=== PATIENT | male | born 1960 | race Caucasian/White ===

== ENCOUNTER 2024-01-30 01:27 | Observation (INO) | payer BC ==
[2024-01-30] MEDS: ASPIRIN 81 MG PO STA (02:24)
[2024-01-30] MEDS: SODIUM CHLORIDE 0.9% 1,000 ML IV STA (02:24)
[2024-01-30] MEDS: ACETAMINOPHEN TAB 500 MG TAB PO STA (02:25)
[2024-01-30] MEDS: NITROGLYCERIN SL TABS 0.4 MG TAB SUBLINGUAL STA (02:26)
[2024-01-30 02:28] LABS: Basophils # (A) 0.1 k/uL (0-0.2); Basophils % (A) 0 %; Eosinophils # (A) 0.3 k/uL (0-0.7); Eosinophils % (A) 2 %; HCT 40.8 % (39.0-53.0); HGB 13.9 gm/dL (13.0-17.5); Lymphocytes # (A) 2.7 k/uL (1.0-4.8); Lymphocytes % (A) 17 %; MCH 32.5 pg (25.0-35.0); MCV 95.6 fL (80.0-100.0); Mean Platelet Volume 7.4; Monocytes # (A) 0.9 k/uL (0-1.0); Monocytes % (A) 5 %; Neutrophils # (A) 12.2 k/uL (1.3-7.7); Neutrophils % (A) 75 %; Platelet Count 312 k/uL (150-450); RBC 4.27 m/uL (4.30-5.90); RDW 13.2 % (11.5-15.5); WBC 16.3 k/uL (3.8-10.6)
--- NOTE | 2024-01-30 02:28 | ED ---
General Adult HPI - General Chief complaint: Headache Stated complaint: High BP Time Seen by Provider: 01/30/24 01:41 Source: patient Mode of arrival: ambulatory Limitations: no limitations - History of Present Illness Initial comments: Patient is a pleasant 63-year-old gentleman with a past medical history of prior hemorrhagic CVA, hypertension, current smoker presenting today for headache, chest pain and hypertension. Patient states that he has had intermittent headaches for the last 3 to 5 months. Headaches are on the left side and right side of his head described as sharp. He has no associated vision changes, numbness weakness or slurred speech. Does state he has had decreased sensation of dorsal aspect left hand for 2 weeks. He spent today with his family and upon arriving home began noticing a headache and chest pressure and checked his blood pressure which was 190/92. He googled his symptoms and the internet told him he should go to the ED. GEORGE is not the worst he has ever had, took 600 mg motrin today at 6 PM, with some improvement. He has had worse headaches over the last 3-5 months. Also describes midsternal chest pressure, though has some difficulty describing the pain further. Intermittently radiates to jaw, shoulders and back though is currently nonradiating. States he also feels short of breath though states that it is difficult to describe does not worsen with ambulation or lying flat.Feels like he has to take "short deep breaths". Is a current smoker and describes ongoign cough that is intermittently productive of sputum but no hemoptysis. That his doctor has him on lisinopril which he usually takes once in the morning and once in the evening as well as Vasotec and nifedipine. He states that he had "a water pill" added 2 weeks ago by his PCP though he unsure of the name. Patient denies history of cancer, recent surgeries or hospitalizations. Feels like his distal lower extremities are mildly swollen otherwise lateral lower extremity swelling. History of prior PE/DVT. No history of prior PA. Patient's father did at the age of 56 from a heart attack. - Related Data Allergies Allergy/AdvReac Type Severity Reaction Status Date / Time No Known Allergies Allergy Verified 01/30/24 01:31 Review of Systems ROS Statement: Those systems with pertinent positive or pertinent negative responses have been documented in the HPI. ROS Other: All systems not noted in ROS Statement are negative. Constitutional: Denies: fever Eyes: Denies: vision change Respiratory: Reports: cough, dyspnea. Denies: wheezes, hemoptysis, stridor Cardiovascular: Reports: chest pain. Denies: dyspnea on exertion, orthopnea, edema Gastrointestinal: Reports: diarrhea (intermittent loose stools ). Denies: abdominal pain, nausea, vomiting, constipation, melena, hematochezia Neurological: Reports: headache, numbness (left hand x 2 weeks). Denies: we akness Past Medical History Past Medical History: Chest Pain / Angina, CVA/TIA, Diabetes Mellitus, Hyperlipidemia, Hypertension Additional Past Medical History / Comment(s): bladder issues History of Any Multi-Drug Resistant Organisms: None Reported Past Surgical History: No Surgical Hx Reported Past Psychological History: Depression Smoking Status: Current every day smoker Past Alcohol Use History: None Reported Past Drug Use History: None Reported General Exam - General Exam Comments Initial Comments: PE: CONSTITUTIONAL: No apparent distress, well appearing SKIN: Warm, dry, no jaundice, hives or petechiae EYES: Pupils are equally round, extraocular movements intact without nystagmus, clear conjunctiva, non-icteric sclera, no papilledema HENT: Normocephalic, atraumatic, moist mucus membranes, oropharynx clear without exudates NECK: , Full range of motion, normal appearance PULMONARY: Clear to auscultation without wheezes, rhonchi, or rales, normal excursion, no accessory muscle use and no stridor CARDIOVASCULAR: Regular rate, rhythm, normal S1 and S2. No appreciated murmurs, rubs or gallops. Strong and dorsalis pedis radial pulses with intact distal perfusion. No lower extremity edema GASTROINTESTINAL: Soft, active bowel sounds throughout, non-tender, non- distended, no palpable masses, no rebound or guarding. No hepatosplenomegaly GENITOURINARY: MUSCULOSKELETAL: Extremities have no gross deformity, no edema, redness, or swelling. No calf swelling NEUROLOGIC:_a/o x 3, GCS 15, normal mentation and speech. Moves all extremities x 4 without motor or sensory deficit Cranial nerves: II (visual ivory without defects), III, IV and (extraocular movements are intact, pupils are equal with normal reaction to light), V (intact facial sensation and jaw opening), VII (no facial droop), IX and X (normal palate movement, midline uvula, normal voice), XI (symmetrical shoulder shrug and lateral head rotation against resistance), XII (midline tongue protrusion). Motor strength is 5/5 in all extremities. No abnormal movements. Normal muscle tone. Sensation to light touch is intact bilaterally. No cerebellar signs ([id number], fqgk-ci-dalk, and rapid alternating movements are normal) PSYCHIATRIC:_normal mood and affect, thought process is clear and linear Limitations: no limitations Course Vital Signs 01/30/24 01:31 Temperature 98.5 F Pulse Rate 73 Respiratory 16 Rate Blood Pressure 208/74 O2 Sat by Pulse 97 Oximetry EKG Findings - EKG Comments: EKG Findings:: Sinus bradycardia, rate 57 bpm, [place] interval 172 ms, QRS duration 125 ms, QT/QTc 444/439 ms, enlarged T waves V3, V4, no ST elevations or depressions, no arrhythmia Medical Decision Making - Medical Decision Making Was pt. sent in by a medical professional or institution (, PA, COMPOSITION WEATHERBOARD INSTALLER, urgent care, hospital, or [facility]...) When possible be specific @ -[No] Did you speak to anyone other than the patient for history (EMS, parent, family, police, friend...)? What history was obtained from this source @ -[No] Did you review nursing and triage notes (agree or disagree)? Why? @ -[I reviewed and agree with nursing and triage notes] Were old charts reviewed (outside hosp., previous admission, EMS record, old EKG, old radiological studies, urgent care reports/EKG's, [facility] records)? Report findings @ -[No old charts were reviewed] Differential Diagnosis (chest pain, altered mental status, abdominal pain women, abdominal pain men, vaginal bleeding, weakness, fever, dyspnea, syncope, headache, dizziness, GI bleed, back pain, seizure, CVA, palpatations, mental health, musculoskeletal)? @ -[not applicable] EKG interpreted by me (3pts min.). @ -[As above] X-rays interpreted by me (1pt min.). @ -[None done] CT interpreted by me (1pt min.). @ -[None done] U/S interpreted by me (1pt. min.). @ -[None done] What testing was considered but not performed or refused? (CT, X-rays, U/S, labs)? Why? @ -[None] What meds were considered but not given or refused? Why? @ -[None] Did you discuss the management of the patient with other professionals (professionals i.e. , PA, COMPOSITION WEATHERBOARD INSTALLER, lab, RT, psych nurse, foster care social worker, pattern drum maker, teacher, restoration officer, major case detective)? Give summary @ -[No] Was smoking cessation discussed for >3mins.? @ -[No] Was critical care preformed (if so, how long)? @ -[No] Were there social determinants of health that impacted care today? How? (Homelessness, low income, unemployed, alcoholism, drug addiction, transportation, low edu. Level, literacy, decrease access to med. care, care home, rehab)? @ -[No] Was there de-escalation of care discussed even if they declined (Discuss DNR or withdrawal of care, Hospice)? @ -[No] What co-morbidities impacted this encounter? (DM, HTN, Smoking, COPD, CAD, Cancer, CVA, ARF, Chemo, Hep., AIDS, mental health diagnosis, sleep apnea, mo rbid obesity)? @ -[None] Was patient admitted / discharged? Hospital course, mention meds given and route, prescriptions, significant lab abnormalities, going to OR and other pertinent info. @ -[hospital course] Patient is a pleasant 63-year-old gentleman presenting today for headache, chest pain and hypertension. Patient seen and assessed on arrival, resting comfortably no acute distress. Very pleasant gentleman, no focal neurologic deficits on exam, lungs are clear to auscultation bilaterally, no lower extremity edema. He is 2+ pulses in all 4 extremities. Blood pressure was 208 systolic however on repeat assessment without intervention was 180/82. Will try subbing on nitroglycerin for chest pressure, 320 mg aspirin, Tylenol for headache. CT brain will be obtained due to new headache without history of the same as this has been ongoing for 3 to 5 months and he is no focal neurologic deficits I have very low suspicion for acute intracranial hemorrhage and did not feel CTA or LP indicated at this point. I do anticipate admission for chest pain given elevated heart score no prior workup for this. Cardiac enzymes, D- dimer, chest x-ray basic labs and IV fluids ordered. HEART score- plan for admission. Patient agreeable with plan. Potassium 3.0, this could potentially cause of's's prolonged QT interval, ordered replacement potassium. Magnesium 1.9. Mild leukocytosis weapons, 16.3 Undiagnosed new problem with uncertain prognosis? @ -[No] Drug Therapy requiring intensive monitoring for toxicity (Heparin, Nitro, Insulin, Cardizem)? @ -[No] Were any procedures done? @ -[No] Diagnosis/symptom? @ -[default] Acute, or Chronic, or Acute on Chronic? @ -[default] Uncomplicated (without systemic symptoms) or Complicated (systemic symptoms)? @ -[default] Side effects of treatment? @ -[No] Exacerbation, Progression, or Severe Exacerbation? @ -[No] Poses a threat to life or bodily function? How? (Chest pain, USA, PA, pneumonia, PE, COPD, DKA, ARF, appy, cholecystitis, CVA, Diverticulitis, Homicidal, Suicidal, threat to staff... and all critical care pts) @ -[No] - Lab Data Result diagrams: 01/30/24 02:16 01/30/24 02:16 Lab Results 01/30/24 01/30/24 Range/Units 02:16 02:16 WBC 16.3 H (3.8-10.6) k/uL RBC 4.27 L (4.30-5.90) m/uL Hgb 13.9 (13.0-17.5) gm/dL Hct 40.8 (39.0-53.0) % MCV 95.6 (80.0-100.0) fL MCH 32.5 (25.0-35.0) pg MCHC 34.0 (31.0-37.0) g/dL RDW 13.2 (11.5-15.5) % Plt Count 312 (150-450) k/uL MPV 7.4 Neutrophils % 75 % Lymphocytes % 17 % Monocytes % 5 % Eosinophils % 2 % Basophils % 0 % Neutrophils # 12.2 H (1.3-7.7) k/uL Lymphocytes # 2.7 (1.0-4.8) k/uL Monocytes # 0.9 (0-1.0) k/uL Eosinophils # 0.3 (0-0.7) k/uL Basophils # 0.1 (0-0.2) k/uL Sodium 136 L (137-145) mmol/L Potassium 3.0 L (3.5-5.1) mmol/L Chloride 101 (98-107) mmol/L Carbon Dioxide 30 (22-30) mmol/L Anion Gap 5 mmol/L BUN 22 H (9-20) mg/dL Creatinine 0.91 (0.66-1.25) mg/dL Est GFR (CKD-EPI)AfAm >90 (>60 ml/min/1.73 sqM) Est GFR (CKD-EPI)NonAf >90 (>60 ml/min/1.73 sqM) Glucose 215 H (74-99) mg/dL Calcium 9.6 (8.4-10.2) mg/dL Magnesium 1.9 (1.6-2.3) mg/dL Total Bilirubin 0.3 (0.2-1.3) mg/dL AST 20 (17-59) U/L ALT 19 (4-49) U/L Alkaline Phosphatase 62 (38-126) U/L Total Protein 6.5 (6.3-8.2) g/dL Albumin 4.2 (3.5-5.0) g/dL Amylase 53 (30-110) U/L Lipase 154 (23-300) U/L Disposition Referrals: Max Ashton DO [Primary Care Provider] - 1-2 days
[2024-01-30 02:38] LABS: ALT 19 U/L (4-49); AST 20 U/L (17-59); African American GFR (CKD) >90 (>60 ml/min/1.73 sqM); Albumin 4.2 g/dL (3.5-5.0); Alkaline Phosphatase 62 U/L (38-126); Amylase 53 U/L (30-110); Anion Gap 5 mmol/L; Blood Urea Nitrogen 22 mg/dL (9-20); Calcium 9.6 mg/dL (8.4-10.2); Carbon Dioxide 30 mmol/L (22-30); Chloride 101 mmol/L (98-107); Glucose 215 mg/dL (74-99); Lipase 154 U/L (23-300); Magnesium 1.9 mg/dL (1.6-2.3); Non-African American GFR(CKD) >90 (>60 ml/min/1.73 sqM); Sodium 136 mmol/L (137-145); Total Bilirubin 0.3 mg/dL (0.2-1.3); Total Protein 6.5 g/dL (6.3-8.2)
[2024-01-30 02:40] LABS: INR 0.9 (<1.2); Partial Thromboplastin Time 23.6 sec (22.0-30.0); Prothrombin Time 10.1 sec (10.0-12.5)
[2024-01-30 02:46] LABS: NT-Pro-B-Type Natriuretic Pept 1390 pg/mL
--- NOTE | 2024-01-30 02:51 | XR ---
EXAMINATION TYPE: XR chest 2V DATE OF EXAM: 01/30/2024 CLINICAL HISTORY: Hypertension and chest pain TECHNIQUE: Frontal and lateral views of the chest are obtained. COMPARISON: None FINDINGS: Overlying EKG leads are seen. There is no focal air space opacity, pleural effusion, or pne umothorax seen. The cardiac silhouette size is within normal limits. The osseous structures are in tact. IMPRESSION: No acute cardiopulmonary process. [facility], , 01/30/2024 2:49 AM
--- NOTE | 2024-01-30 02:52 | CT ---
EXAMINATION TYPE: CT brain wo con DATE OF EXAM: 01/30/2024 HISTORY: Pt presents with hypertension for the past 4 months. PT has been doubling his lisinopril , h e states his PCP added a water pill. Today pt complains of a headache. CT DLP: 1168.7 mGycm. Automated Exposure Control for Dose Reduction was Utilized. TECHNIQUE: CT scan of the head is performed without contrast. COMPARISON: None. FINDINGS: There is no acute intracranial hemorrhage or midline shift identified. Ventricles and sul ci are within normal limits in size. Michele-white matter differentiation is maintained. The globes are intact and the visualized sinuses are clear. IMPRESSION: No acute intracranial hemorrhage or midline shift. [facility], , 01/30/2024 2:50 AM
[2024-01-30] MEDS: POTASSIUM BICARBONATE/CIT AC 20 MEQ TABLET.EFF PO ONE (03:12)
--- NOTE | 2024-01-30 04:20 | P.HPIM ---
History of Present Illness H&P Date: 01/30/24 Patient is a 63-year-old male with a PMH of type II DM, hypertension, hyperlipidemia, tobacco abuse, and prior hemorrhagic CVA who presents to the emergency room with complaints of intermittent chest discomfort and headaches. Patient reports that he has been experiencing both of these symptoms over the past 3 to 5 months. Reports that the chest discomfort is usually brought on with exertion and has somewhat been stable in the past few weeks. Does report that the headache seems to be associated with elevated blood pressure readings at home. Checked his BP earlier today as he was again having episode of both substernal chest discomfort and diffuse headache and noted that it was 190/92. Reports that chest discomfort is nonradiating, with some associated shortness of breath, without nausea, vomiting, diaphoresis, dizziness. The pain was improved with nitroglycerin in the emergency room. Reports being symptom-free at the time of interview. Denies experiencing weakness, speech impairment, or visual problems. Does report some paresthesias of the left hand over the past few weeks. CT brain in the emergency was unremarkable with chest x-ray also unremarkable. EKG revealed sinus bradycardia at 57 bpm with no additional ST/T wave changes noted as reviewed by me. Laboratory evaluation was remarkable for leukocytosis of 16.3, sodium 126, potassium 3.0, BUN 22, glucose 215, with troponin 0.030 and proBNP 1309. The patient's BP in the emergency room was 2 8/74 with pulse 73, temp 98.5 F, SpO2 97% on room air. ED documentation reviewed and case discussed with ED provider. Review of systems: Pertinent positives and negatives as discussed in HPI, a complete review of systems was performed and all other systems are negative. Physical examination: Vital signs reviewed General: non toxic, no distress, appears at stated age, normal weight Derm: no unusual rashes/lesions, warm Head: atraumatic, normocephalic, symmetric Eyes: EOMI, no lid lag, anicteric sclera, pupils equal round reactive to light ENT: Nose and ears atraumatic Neck: No cervical lymphadenopathy, trachea midline, supple Mouth: no lip lesion, mucus membranes moist Cardiovascular: S1S2 reg, no murmur, positive dorsalis pedis pulse bilateral, no edema Lungs: CTA bilateral, no rhonchi, no rales, no accessory muscle use Abdominal: soft, nontender to palpation, no guarding Ext: muscle strength 5 out of 5 in all 4 extremities grossly, no gross muscle atrophy, no contractures, Neuro: CN II-XI grossly intact, no gross focal neuro deficits Psych: Alert, oriented, appropriate affect Assessment: Chest pain, rule out ACS Hypertensive urgency Leukocytosis, likely secondary to acute stressor with no signs of active infection at this time Hypokalemia Chronic conditions: Type II DM, hypertension, hyperlipidemia, tobacco abuse Imaging: CT brain in the emergency was unremarkable with chest x-ray also unremarkable. EKG revealed sinus bradycardia at 57 bpm with no additional ST/T wave changes noted as reviewed by me. Data Review: Laboratory evaluation was remarkable for leukocytosis of 16.3, sodium 126, potassium 3.0, BUN 22, glucose 215, with troponin 0.030 and proBNP 1309. The patient's BP in the emergency room was 2 874 with pulse 73, temp 98.5 F, SpO2 97% on room air. Plan: Cardiology consulted Trend troponin Continue with aspirin and statin Cardiac monitoring Resume home antihypertensives Monitor CBC Replace potassium Insulin sliding scale blood glucose monitoring Resume remaining home medications once reconciled DVT prophylaxis: Lovenox The patient is admitted with an anticipated fewer than 2 midnight stay for evaluation of chest pain. Pain CODE STATUS: Full Code Discussed with: Patient Anticipated discharge place: Home Past Medical History Past Medical History: Chest Pain / Angina, CVA/TIA, Diabetes Mellitus, Hyperlipidemia, Hypertension Additional Past Medical History / Comment(s): bladder issues History of Any Multi-Drug Resistant Organisms: None Reported Past Surgical History: No Surgical Hx Reported Past Psychological History: Depression Smoking Status: Current every day smoker Past Alcohol Use History: None Reported Past Drug Use History: None Reported - Past Family History Mother Family Medical History: Hyperlipidemia Medications and Allergies Allergies Allergy/AdvReac Type Severity Reaction Status Date / Time No Known Allergies Allergy Verified 01/30/24 01:31 Physical Exam Vitals: Vital Signs Temp Pulse Resp BP Pulse Ox 01/30/24 01:31 98.5 F 73 16 208/74 97 Intake and Output 01/29/24 01/29/24 01/30/24 14:59 22:59 06:59 Other: Weight 82.1 kg Results CBC & Chem 7: 01/30/24 02:16 01/30/24 02:16 Labs: Abnormal Lab Results - Last 24 Hours (Table) 01/30/24 01/30/24 Range/Units 02:16 02:16 WBC 16.3 H (3.8-10.6) k/uL RBC 4.27 L (4.30-5.90) m/uL Neutrophils # 12.2 H (1.3-7.7) k/uL Sodium 136 L (137-145) mmol/L Potassium 3.0 L (3.5-5.1) mmol/L BUN 22 H (9-20) mg/dL Glucose 215 H (74-99) mg/dL
[2024-01-30] MEDS: POTASSIUM CHLORIDE ER 20 MEQ TAB.ER PO STA (04:26)
[2024-01-30] MEDS: ATORVASTATIN 80 MG TAB PO STA (04:26)
[2024-01-30] MEDS: ATORVASTATIN 80 MG TAB PO SCH (04:26)
[2024-01-30] MEDS ORDERED: traMADol 50 MG TAB PO PRN (04:35)
[2024-01-30] MEDS ORDERED: ACETAMINOPHEN TAB 325 MG TAB PO PRN (04:35)
[2024-01-30] MEDS ORDERED: NALOXONE 0.4 MG/ML 1 ML VIAL IV PRN (04:35)
[2024-01-30] MEDS ORDERED: ALPRAZolam 0.25 MG TAB PO PRN (04:35)
[2024-01-30 05:29] LABS: Glucose,Whole Blood 163 mg/dL (70-110)
[2024-01-30 06:15] LABS: HCT 37.1 % (39.0-53.0); HGB 12.7 gm/dL (13.0-17.5); MCH 33.1 pg (25.0-35.0); MCHC 34.2 g/dL (31.0-37.0); MCV 96.5 fL (80.0-100.0); Mean Platelet Volume 6.7; Platelet Count 279 k/uL (150-450); RBC 3.85 m/uL (4.30-5.90); RDW 12.8 % (11.5-15.5); WBC 14.1 k/uL (3.8-10.6)
[2024-01-30 07:26] LABS: Glucose,Whole Blood 137 mg/dL (70-110)
[2024-01-30] MEDS: INSULIN ASPART (NovoLOG) 100 UNIT/ML VIAL SQ SCH (07:30)
[2024-01-30 08:04] VITALS: TEMP 98.3
[2024-01-30] MEDS ORDERED: REGADENOSON 0.4 MG/5 ML SYRINGE IV PRN (08:38)
[2024-01-30] MEDS ORDERED: CAFFEINE CITRATE 60 MG/3 ML VIAL IV PRN (08:38)
[2024-01-30] MEDS ORDERED: AMINOPHYLLINE 500 MG/20 ML VIAL IV PRN (08:38)
[2024-01-30] MEDS: ASPIRIN 81 MG PO SCH (08:43)
[2024-01-30] MEDS: ENOXAPARIN 40 MG/0.4 ML SYRINGE SQ SCH (08:46)
[2024-01-30 09:19] LABS: ALT 17 U/L (4-49); AST 18 U/L (17-59); African American GFR (CKD) >90 (>60 ml/min/1.73 sqM); Albumin 3.7 g/dL (3.5-5.0); Albumin/Globulin Ratio 1.7; Alkaline Phosphatase 50 U/L (38-126); Anion Gap 3 mmol/L; Blood Urea Nitrogen 16 mg/dL (9-20); Calcium 9.2 mg/dL (8.4-10.2); Carbon Dioxide 33 mmol/L (22-30); Chloride 101 mmol/L (98-107); Globulin 2.2 g/dL; Glucose 173 mg/dL (74-99); Magnesium 1.8 mg/dL (1.6-2.3); Non-African American GFR(CKD) >90 (>60 ml/min/1.73 sqM); Potassium 3.3 mmol/L (3.5-5.1); Sodium 137 mmol/L (137-145); Total Bilirubin 0.7 mg/dL (0.2-1.3); Total Protein 5.9 g/dL (6.3-8.2)
--- NOTE | 2024-01-30 10:37 | P.CRDCN ---
History of Present Illness Consult date: 01/30/24 Consult reason: chest pain History of present illness: This is a 63-year-old male with past medical history of hypertension, hyperlipidemia, diabetes mellitus type 2, CVA 14 years ago. We have been asked to evaluate the patient for chest pain. 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 He follows with a PCP in [place]. He states that for the past 3 to 4 months his blood pressure has been high and he has had a headache and not feeling well in general. He states yesterday he could not sleep he was very anxious and his blood pressure was quite high. He has also had left sided chest pain has been going on for 3 to 4 months and can happen at any time. Activity does not make his chest pain worse. He did receive nitroglycerin which apparently took away the chest pain. He also complains of dyspnea on exertion. No lower extremity edema. He does have occasional dizziness but no syncopal episodes. He does have palpitations. He usually drinks 2 cups of coffee per day. He is a smoker. Patient is seen today in the emergency center waiting for bed on the cardiac stepdown unit. -EKG: Sinus rhythm with no acute ST changes -Chest x-ray: No acute process -CT brain: No acute intracranial hemorrhage or midline shift. -Laboratory studies: WBC 16.3, hemoglobin 12.7. Sodium 137, potassium 3.3, creatinine 0.74. Troponin negative x 2. Influenza A, influenza B, RSV, COVID- 19 not detected. -Home cardiac medications: Atorvastatin 40 mg at bedtime, chlorthalidone 25 mg daily, lisinopril 40 mg daily, nifedipine 90 mg daily. Review Of Systems: At the time of my exam: CONSTITUTIONAL: Denies fever or chills. HEENT: Denies blurred vision, vision changes, or eye pain. Denies hemoptysis CARDIOVASCULAR: Denies chest pain. Denies orthopnea. Denies PND. Denies palpitations RESPIRATORY: Denies shortness of breath. GASTROINTESTINAL: Denies abdominal pain. Denies nausea or vomiting. HEMATOLOGIC: Denies bleeding disorders. GENITOURINARY: Denies any blood in urine. SKIN: Denies puritis. Denies rash. Physical examination: Gen: This is a 63-year-old male in no acute distress VS: reviewed HEENT: Head is atraumatic, normocephalic. Pupils equal, round. Sclerae is anicteric. NECK: Supple. No JVD. LUNGS: Clear to auscultation. No wheezes or rhonchi. No intercostal retractio ns. HEART: Regular rate and rhythm. No murmur. ABDOMEN: Soft No tenderness. EXTREMITIES: No pedal edema. No calf tenderness. NEUROLOGICAL: Patient is awake, alert and oriented x3. Assessment: Leukocytosis Plan: Resume patient's home cardiac medications Patient has been started on aspirin 81 mg daily Obtain 2-D echocardiogram and Doppler study to assess cardiac structure and function Obtain Lexiscan Cardiolite stress test tomorrow as patient has had breakfast today Further recommendations to follow based upon clinical course Thank you kindly for this consultation. Nurse practitioner note has been reviewed, I agree with documented findings and plan of care. Patient was seen and examined. Past Medical History Past Medical History: Chest Pain / Angina, CVA/TIA, Diabetes Mellitus, Hyperlipidemia, Hypertension Additional Past Medical History / Comment(s): bladder issues History of Any Multi-Drug Resistant Organisms: None Reported Past Surgical History: No Surgical Hx Reported Past Psychological History: Depression Smoking Status: Current every day smoker Past Alcohol Use History: None Reported Past Drug Use History: None Reported - Past Family History Mother Family Medical History: Hyperlipidemia Medications and Allergies Home Medications Medication Instructions Recorded Confirmed Type ALPRAZolam [Xanax] 1 mg PO TID PRN 01/30/24 01/30/24 History Albuterol Sulfate [Albuterol 2 puff INHALATION RT-Q4H PRN 01/30/24 01/30/24 History Sulfate Hfa] Atorvastatin [Lipitor] 40 mg PO HS 01/30/24 01/30/24 History Chlorthalidone 25 mg PO DAILY 01/30/24 01/30/24 History NIFEdipine [Adalat CC] 90 mg PO DAILY 01/30/24 01/30/24 History PARoxetine [Paxil] 40 mg PO DAILY 01/30/24 01/30/24 History lisinopriL 40 mg PO DAILY 01/30/24 01/30/24 History metFORMIN HCL 1,000 mg PO BID 01/30/24 01/30/24 History oxyBUTYnin chloride [Ditropan] 5 mg PO BID 01/30/24 01/30/24 History Allergies Allergy/AdvReac Type Severity Reaction Status Date / Time No Known Allergies Allergy Verified 01/30/24 07:19 Physical Exam Vitals: Vital Signs Temp Pulse Resp BP Pulse Ox 01/30/24 08:00 98.3 F 56 L 17 97/85 97 01/30/24 06:26 60 18 146/131 98 01/30/24 04:34 50 L 18 172/78 97 01/30/24 01:31 98.5 F 73 16 208/74 97 Intake and Output 01/29/24 01/30/24 01/30/24 22:59 06:59 14:59 Other: Weight 82.1 kg Results 01/30/24 06:10 01/30/24 08:17 Cardiac Enzymes 01/30/24 01/30/24 01/30/24 Range/Units 02:16 02:16 05:20 AST 20 (17-59) U/L Troponin I 0.020 0.019 (0.000-0.034) ng/mL Coagulation 01/30/24 Range/Units 02:16 PT 10.1 (10.0-12.5) sec APTT 23.6 (22.0-30.0) sec CBC 01/30/24 01/30/24 Range/Units 02:16 06:10 WBC 16.3 H 14.1 H (3.8-10.6) k/uL RBC 4.27 L 3.85 L (4.30-5.90) m/uL Hgb 13.9 12.7 L (13.0-17.5) gm/dL Hct 40.8 37.1 L (39.0-53.0) % Plt Count 312 279 (150-450) k/uL Comprehensive Metabolic Panel 01/30/24 Range/Units 02:16 Sodium 136 L (137-145) mmol/L Potassium 3.0 L (3.5-5.1) mmol/L Chloride 101 (98-107) mmol/L Carbon Dioxide 30 (22-30) mmol/L BUN 22 H (9-20) mg/dL Creatinine 0.91 (0.66-1.25) mg/dL Glucose 215 H (74-99) mg/dL Calcium 9.6 (8.4-10.2) mg/dL AST 20 (17-59) U/L ALT 19 (4-49) U/L Alkaline Phosphatase 62 (38-126) U/L Total Protein 6.5 (6.3-8.2) g/dL Albumin 4.2 (3.5-5.0) g/dL Current Medications Generic Name Dose Route Start Last Admin Trade Name Freq PRN Reason Stop Dose Admin Acetaminophen 650 mg 01/30/24 04:35 Acetaminophen Tab 325 Mg Tab PO Q6HR PRN Mild Pain or Fever > 100.5 Alprazolam 0.25 mg 01/30/24 04:35 Alprazolam 0.25 Mg Tab PO Q6HR PRN Anxiety Aspirin 81 mg 01/30/24 09:00 Aspirin 81 Mg PO DAILY YOKO Atorvastatin Calcium 80 mg 01/30/24 21:00 01/30/24 04:26 Atorvastatin 80 Mg Tab PO 80 mg HS YOKO Administration Enoxaparin Sodium 40 mg 01/30/24 09:00 Enoxaparin 40 Mg/0.4 Ml Syringe SQ DAILY [facility] Insulin Aspart 0 unit 01/30/24 07:30 01/30/24 07:30 Insulin Aspart (Novolog) 100 Unit/Ml Vial SQ Not Given ACHS [facility] Protocol Naloxone HCl 0.2 mg 01/30/24 04:35 Naloxone 0.4 Mg/Ml 1 Ml Vial IV Q2M PRN Opioid Reversal Tramadol HCl 50 mg 01/30/24 04:35 Tramadol 50 Mg Tab PO Q6H PRN Moderate Pain (Scale 4 to 6) Intake and Output 01/29/24 01/30/24 01/30/24 22:59 06:59 14:59 Other: Weight 82.1 kg 01/30/24 06:10 01/30/24 02:16
--- NOTE | 2024-01-30 11:52 | P.PN ---
Subjective Progress Note Date: 01/30/24 Objective - Vital Signs Vital signs: Vital Signs Temp 98.3 F 01/30/24 08:00 Pulse 58 L 01/30/24 08:47 Resp 17 01/30/24 08:47 BP 157/67 01/30/24 08:47 Pulse Ox 98 01/30/24 08:47 FiO2 Intake & Output 01/29/24 01/30/24 01/30/24 18:59 06:59 18:59 Weight 82.1 kg - Labs CBC & Chem 7: 01/30/24 06:10 01/30/24 08:17 Labs: Abnormal Lab Results - Last 24 Hours (Table) 01/30/24 01/30/24 01/30/24 Range/Units 02:16 02:16 05:27 WBC 16.3 H (3.8-10.6) k/uL RBC 4.27 L (4.30-5.90) m/uL Hgb (13.0-17.5) gm/dL Hct (39.0-53.0) % Neutrophils # 12.2 H (1.3-7.7) k/uL Sodium 136 L (137-145) mmol/L Potassium 3.0 L (3.5-5.1) mmol/L Carbon Dioxide (22-30) mmol/L BUN 22 H (9-20) mg/dL Glucose 215 H (74-99) mg/dL POC Glucose (mg/dL) 163 H (70-110) mg/dL Total Protein (6.3-8.2) g/dL 01/30/24 01/30/24 01/30/24 Range/Units 06:10 07:24 08:17 WBC 14.1 H (3.8-10.6) k/uL RBC 3.85 L (4.30-5.90) m/uL Hgb 12.7 L (13.0-17.5) gm/dL Hct 37.1 L (39.0-53.0) % Neutrophils # (1.3-7.7) k/uL Sodium (137-145) mmol/L Potassium 3.3 L (3.5-5.1) mmol/L Carbon Dioxide 33 H (22-30) mmol/L BUN (9-20) mg/dL Glucose 173 H (74-99) mg/dL POC Glucose (mg/dL) 137 H (70-110) mg/dL Total Protein 5.9 L (6.3-8.2) g/dL
[2024-01-30 12:21] LABS: Glucose,Whole Blood 193 mg/dL (70-110)
[2024-01-30 12:23] VITALS: BP 155/129; PULSE 57; RESP 18
--- NOTE | 2024-01-30 15:34 | P.DS ---
Providers Date of admission: 01/30/24 04:36 Expected date of discharge: 01/30/24 Attending physician: Pura Spangler MD Consults: 01/30/24 04:18 Consult Physician Urgent Consulting Provider: Bryant Veloz Consult Reason/Comments: chest pain Do you want consulting provider notified?: Yes Primary care physician: Max Ashton DO Hospital Course: Patient was admitted with chest pain. He was evaluated by hospitalist team as well as cardiology. He was scheduled to undergo Lexiscan stress test tomorrow morning. Received notification from [employer] that patient and his significant o ther signed out AMA and were not willing to stay for recommended procedure. Patient Condition at Discharge: Undetermined Plan - Discharge Summary New Discharge Prescriptions: No Action lisinopriL 40 mg PO DAILY PARoxetine [Paxil] 40 mg PO DAILY Chlorthalidone 25 mg PO DAILY oxyBUTYnin chloride [Ditropan] 5 mg PO BID Atorvastatin [Lipitor] 40 mg PO HS NIFEdipine [Adalat CC] 90 mg PO DAILY metFORMIN HCL 1,000 mg PO BID Albuterol Sulfate [Albuterol Sulfate Hfa] 2 puff INHALATION RT-Q4H PRN PRN Reason: Shortness Of Breath ALPRAZolam [Xanax] 1 mg PO TID PRN PRN Reason: Anxiety Discharge Medication List ALPRAZolam [Xanax] 1 mg PO TID PRN 01/30/24 [History] Albuterol Sulfate [Albuterol Sulfate Hfa] 2 puff INHALATION RT-Q4H PRN 01/30/24 [History] Atorvastatin [Lipitor] 40 mg PO HS 01/30/24 [History] Chlorthalidone 25 mg PO DAILY 01/30/24 [History] NIFEdipine [Adalat CC] 90 mg PO DAILY 01/30/24 [History] PARoxetine [Paxil] 40 mg PO DAILY 01/30/24 [History] lisinopriL 40 mg PO DAILY 01/30/24 [History] metFORMIN HCL 1,000 mg PO BID 01/30/24 [History] oxyBUTYnin chloride [Ditropan] 5 mg PO BID 01/30/24 [History] Follow up Appointment(s)/Referral(s): Max Ashton DO [Primary Care Provider] - 1-2 days
--- NOTE | 2024-01-31 10:34 | CA ---
Transthoracic Echo Report Name: John Onofre Age: 63 Gender: M : 1960 Exam Date: 01/30/2024 14:27 Exam Location: [place] [facility] Ht (in): 71 Wt (lb): 181 Ordering Physician: Roxi Patel Attending/Referring Phys: [id number], Amanda [employer] Mary Martin, LUZ Procedure CPT: Indications: LVF Cardiac Hx: Technical Quality: Good Contrast 1: Total Dose (mL): Contrast 2: Total Dose (mL): MEASUREMENTS (Male / Female) Normal Values 2D ECHO LV Diastolic Diameter PLAX 5.6 cm 4.2 - 5.9 / 3.9 - 5.3 cm LV Systolic Diameter PLAX 3.9 cm IVS Diastolic Thickness 1.5 cm 0.6 - 1.0 / 0.6 - 0.9 cm LVPW Diastolic Thickness 1.3 cm 0.6 - 1.0 / 0.6 - 0.9 cm LV Relative Wall Thickness 0.5 RV Internal Dim ED PLAX 3.9 cm LA Systolic Diameter LX 3.9 cm 3.0 - 4.0 / 2.7 - 3.8 cm LV Diastolic Volume MOD BP 148.4 cm??? 67 - 155 / 56 - 104 cm??? LV Systolic Volume MOD BP 73.2 cm??? 22 - 58 / 19 - 49 cm??? LV Ejection Fraction MOD BP 50.7 % >= 55 % LV Cardiac Index MOD BP 1477.3 cm???/min???m??? LV Diastolic Volume MOD 4C 108.2 cm??? LV Systolic Volume MOD 4C 60.3 cm??? LV Ejection Fraction MOD 4C 44.3 % LV Cardiac Index MOD 4C 941.8 cm???/min???m??? LV Diastolic Length 4C 7.8 cm LV Systolic Length 4C 6.4 cm LV Diastolic Volume MOD 2C 139.1 cm??? LV Systolic Volume MOD 2C 58.9 cm??? LV Ejection Fraction MOD 2C 57.7 % LV Cardiac Index MOD 2C 1575.7 cm???/min???m??? LV Diastolic Length 2C 8.0 cm LV Systolic Length 2C 6.4 cm LA Volume 93.2 cm??? 18 - 58 / 22 - 52 cm??? LA Volume Index 45.8 cm???/m??? 16 - 28 cm???/m??? M-MODE Aortic Root Diameter MM 3.0 cm AV Cusp Separation MM 2.0 cm DOPPLER AV Peak Velocity 144.8 cm/s AV Peak Gradient 8.4 mmHg MV Area PHT 2.9 cm??? Mitral E Point Velocity 84.2 cm/s Mitral A Point Velocity 85.3 cm/s Mitral E to A Ratio 1.0 MV Deceleration Time 258.7 ms TR Peak Velocity 244.0 cm/s TR Peak Gradient 23.8 mmHg Right Ventricular Systolic Press 28.8 mmHg FINDINGS Left Ventricle Left ventricular ejection fraction is estimated at 50-55 %. Moderately increased left ventricular wall thickness. Left ventricular systolic function borderline normal.left ventricular cavity size normal. Right Ventricle Mild right ventricular dilatation. Normal right ventricular size and function. Right Atrium Mild right atrial dilatation. No right atrial thrombus or mass seen. Left Atrium Severely increased left atrial volume. Mildly increased left atrial area. No left atrial thrombus or mass present. Mitral Valve Structurally normal mitral valve. Mild mitral regurgitation. Aortic Valve Trileaflet aortic valve. No aortic valve stenosis or regurgitation. Tricuspid Valve Structurally normal tricuspid valve. Mild tricuspid regurgitation. Pulmonic Valve Structurally normal pulmonic valve. No pulmonic regurgitation. Pericardium No pericardial or pleural effusion. Aorta Normal size aortic root and proximal ascending aorta. CONCLUSIONS 1. Left ventricular systolic function borderline normal 2. Mild mitral and tricuspid regurgitation Previewed by: Dr. Kurt Bustamante MD (Electronically Signed) Final Date: 31 January 2024 10:33
== END 2024-01-30 15:30 | disposition left against medical advice (07) ==
LOC: SUPCPDRO 01:27 → EC 01:27 → 6NMEDSUR 04:36
PROVIDERS: ADMIT Internal Medicine; ATTEND Internal Medicine
DX: R07.89 Other chest pain (principal); R00.1 Bradycardia, unspecified; R06.09 Other forms of dyspnea; R42 Dizziness and giddiness; R00.2 Palpitations; R51.9 Headache, unspecified; Z53.29 Procedure and treatment not carried out because of patient's decision for other reasons; E11.9 Type 2 diabetes mellitus without complications; D72.829 Elevated white blood cell count, unspecified; E78.5 Hyperlipidemia, unspecified; E87.6 Hypokalemia; F17.200 Nicotine dependence, unspecified, uncomplicated; F32.A Depression, unspecified; I10 Essential (primary) hypertension; I16.0 Hypertensive urgency; Z79.84 Long term (current) use of oral hypoglycemic drugs; Z79.899 Other long term (current) drug therapy; Z86.711 Personal history of pulmonary embolism; Z86.718 Personal history of other venous thrombosis and embolism; Z86.73 Personal history of transient ischemic attack (TIA), and cerebral infarction without residual deficits; Z82.49 Family history of ischemic heart disease and other diseases of the circulatory system
CPT/HCPCS: 96360; 96361; 96372; 99285; 36415; 93005; 93306; 85379; 83880; 80053; 82150; 83690; 83735; 84484; 85025; 85027; 85610; 85730; 87636; 71046; 70450; G0378; J1650